=== PATIENT | female | born 1980 | race Caucasian/White ===

== ENCOUNTER 2016-08-28 13:19 | Emergency (ER) | payer MEDICAID ==
[~2016-08-28] VITALS: Ht 152.4 cm; Wt 43.0 kg
[~2016-08-28 13:19] MED LIST: PARO10TA24 PO
[2016-08-28 13:21] VITALS: BP 103/66
[2016-08-28] MEDS ORDERED: HYDROcodone/APAP 5/325 TABLET ONE (13:51)
[2016-08-28] MEDS ORDERED: HYDROcodone/APAP 5/325 TABLET PO ONE (14:00)
== END 2016-08-28 14:57 | disposition home or self-care (01) ==
LOC: ED 14:50
DX: S60.212A Contusion of left wrist, initial encounter (principal); W19.XXXA Unspecified fall, initial encounter; Y93.89 Activity, other specified; Y92.89 Other specified places as the place of occurrence of the external cause; Y99.8 Other external cause status
CPT/HCPCS: 99284

== ENCOUNTER 2016-11-12 13:02 | Emergency (ER) | payer MEDICAID ==
[~2016-11-12] VITALS: Ht 152.4 cm; Wt 41.1 kg
[~2016-11-12 13:02] MED LIST changes: -PARO10TA24 PO; +PARO10TA56 PO
[2016-11-12 14:30] VITALS: BP 95/62
== END 2016-11-12 14:57 | disposition home or self-care (01) ==
LOC: ED 14:45
DX: S20.212A Contusion of left front wall of thorax, initial encounter (principal); F17.210 Nicotine dependence, cigarettes, uncomplicated; Y04.0XXA Assault by unarmed brawl or fight, initial encounter
CPT/HCPCS: 71020; 99284